=== PATIENT | female | born 1985 | race Caucasian/White ===

== ENCOUNTER 2018-11-04 01:12 | Emergency (ER) | payer BC, OTHER ==
[~2018-11-04] VITALS: Ht 160 cm; Wt 73.2 kg
[~2018-11-04 01:12] MED LIST: AZIT250T PO; BENZ-6 PO; D-ME473S2 PO; PRENAT PO
[2018-11-04 01:20] VITALS: Ht 160 cm; Wt 73.2 kg
== END 2018-11-04 02:33 | disposition home or self-care (01) ==
LOC: FTE 01:12
DX: J40 Bronchitis, not specified as acute or chronic (principal)
CPT/HCPCS: 99283